=== PATIENT | male | born 1960 | race Caucasian/White ===

== ENCOUNTER 2018-12-11 09:09 | Emergency (ER) | payer OTHER ==
[~2018-12-11] VITALS: Ht 185.4 cm; Wt 120.7 kg
--- NOTE | 2018-12-11 09:25 | NUR ---
PATIENT CAME TO ER, WITH UNCONTROLLABLE SHAKINESS STARTED 45 MINS AGO, FSBS TAKEN 174. PATIENT A&O X 3, NO ACUTE DISTRESS. AWAITING
[2018-12-11] MEDS ORDERED: LORAZEPAM INJ 2 MG/ML VIAL IVP ONE (09:30)
[2018-12-11] MEDS ORDERED: IV NS 0.9% 1,000 ML BAG IV ONE (09:30)
[2018-12-11 09:41] LABS: BASOPHILS # (AUTO) 0.1 /CMM (0.0-0.2); BASOPHILS % (AUTO) 0.7 % (0.0-2.0); EOSINOPHILS % (AUTO) 1.4 % (0.0-6.0); HEMATOCRIT 44 % (39-51); HEMOGLOBIN 14.9 g/dL (13.5-17.5); LYMPHOCYTES # (AUTO) 2.1 /CMM (0.8-4.8); LYMPHOCYTES % (AUTO) 20.8 % (20.0-44.0); MEAN CORPUSCULAR HGB CONC 34 g/dl (31.0-36.0); MEAN CORPUSCULAR VOLUME 91 fL (80-96); MONOCYTES # (AUTO) 0.7 /CMM (0.1-1.30); MONOCYTES % (AUTO) 7.2 % (2.0-12.0); NEUTROPHILS % (AUTO) 69.9 % (43.0-81.0); PLATELET COUNT (AUTO) 254 /CMM (150-450); RED BLOOD CELL COUNT(AUTO) 4.86 MIL/uL (4.5-6.0); WHITE BLOOD COUNT (AUTO) 10.1 K/uL (4.3-11.0)
--- NOTE | 2018-12-11 09:44 | NUR ---
IV LINE ESTABLISHED ON RIGHT AC g18
--- NOTE | 2018-12-11 09:45 | NUR ---
URINE COLLECTED AND SENT TO LAB
[2018-12-11] MEDS ORDERED: LORAZEPAM INJ 2 MG/ML VIAL ONE (09:47)
[2018-12-11 10:02] LABS: ALANINE AMINOTRANSFERASE 36 U/L (12-78); ALBUMIN 3.6 g/dL (3.4-5.0); ALCOHOL, BLOOD < 3 mg/dL (0-0); ALKALINE PHOSPHATASE 100 U/L (46-116); ASPARTATE AMINOTRANSFERASE 21 U/L (15-37); BILIRUBIN,DIRECT 0.1 mg/dL (0.0-0.2); BILIRUBIN,TOTAL 0.5 mg/dL (0.2-1.0); CALCIUM, SERUM 8.8 mg/dL (8.5-10.1); CARBON DIOXIDE 26 mmol/L (21-32); CHLORIDE 104 mmol/L (98-107); CREATININE 0.9 mg/dL (0.6-1.3); GLUCOSE 183 mg/dL (74-106); SODIUM SERUM 140 mmol/L (136-145); TOTAL PROTEIN, SERUM 6.9 g/dL (6.4-8.2); UREA NITROGEN, BLOOD 12 mg/dL (7-18)
[2018-12-11 10:05] LABS: APPEARANCE,URINE Clear (CLEAR); BILIRUBIN,URINE Negative (NEGATIVE); BLOOD, URINE Negative Ery/uL (NEGATIVE); COLOR,URINE Yellow (YELLOW); KETONES,URINE Negative (NEGATIVE); LEUKOCYTE ESTERASE ,URINE Negative (NEGATIVE); NITRITE, URINE Negative (NEGATIVE); PROTEIN,URINE Negative (NEGATIVE); UGLUCOSE >=1000 mg/dL (NEGATIVE); UROBILINOGEN,URINE 0.2 EU/dL (0.2)
[2018-12-11 10:05] LABS: ACETAMINOPHEN < 2 ug/ml (10-30); SALICYLATE < 2.8 mg/dL (2.8-20.0)
[2018-12-11 10:08] LABS: BAND % (MANUAL) 2 % (0.0-5.0); LYMPHOCYTES % (MANUAL) 24 % (16-48); MONOCYTES % (MANUAL) 7 % (0-11.0); NEUTROPHILS % (MANUAL) 67 (42-76)
[2018-12-11 10:31] LABS: RBC,URINE 0-2 /HPF (0-2); WBC,URINE 0-2 /HPF (0-3)
[2018-12-11 10:32] LABS: BACTERIA,URINE None seen /HPF (None Seen); SQUAMOUS EPITHELIAL CELL,UR Few /HPF (None Seen)
[2018-12-11] MEDS ORDERED: MORPHINE SULFATE INJ 4 MG/ML DISP.SYRIN ONE ×2 (11:56→13:56)
[2018-12-11] MEDS ORDERED: MORPHINE SULFATE INJ 4 MG/ML DISP.SYRIN IV ONE ×2 (12:00→14:00)
--- NOTE | 2018-12-11 12:07 | NUR ---
CALLED [facility] TO START TRANSFER. AWAITING ANTONINA VÁZQUEZ TO CALL BACK
[2018-12-11] MEDS ORDERED: ASPI-605 PO (12:09)
[2018-12-11] MEDS ORDERED: ATOR20TA PO (12:09)
[2018-12-11] MEDS ORDERED: FLEC50TA2 PO (12:09)
[2018-12-11] MEDS ORDERED: EMPA25TA PO (12:09)
[2018-12-11] MEDS ORDERED: METO25TA6 PO (12:09)
[2018-12-11] MEDS ORDERED: METF-442 PO (12:09)
--- NOTE | 2018-12-11 13:36 | NUR ---
SPOKE TO ANA FROM [facility] AND GAVE HER LAB VALUES. AWAITING BED
[2018-12-11 15:00] VITALS: BP 113/65
--- NOTE | 2018-12-11 15:02 | NUR ---
ANA FROM [facility] CALLED TO INFORM US TO CALL [phone] VELAZQUEZ IS ADMITTING. [facility] ETA [id number]
[2018-12-11] MEDS ORDERED: ACETAMINOPHEN 325 MG TABLET ONE (15:28)
[2018-12-11] MEDS ORDERED: ACETAMINOPHEN 325 MG TABLET PO ONE (15:30)
--- NOTE | 2018-12-11 15:40 | NUR ---
PLACED CALL TO ANTONINA ([phone]) AND GAVE REPORT TO KALLI FOR [facility]
--- NOTE | 2018-12-11 15:45 | NUR ---
PATIENT TRANSFERRED TO [facility] IN STABLE CONDITION. NO ACUTE DISTRESS. NO CHANGES IN LOC NOTED. ALL BELONGINGS WITH PATIENT. IV INTACT AND PATENT. TRANSFER INFORMATION, CD IMAGES WITH PATIENT
== END 2018-12-11 16:12 | disposition short-term general hospital (02) ==
LOC: ER 09:11
DX: G45.9 Transient cerebral ischemic attack, unspecified (principal); R41.82 Altered mental status, unspecified; I48.91 Unspecified atrial fibrillation; I10 Essential (primary) hypertension; E11.9 Type 2 diabetes mellitus without complications; Z98.890 Other specified postprocedural states; Z79.82 Long term (current) use of aspirin
CPT/HCPCS: 36415; 70450; 71045; 80048; 80076; 80305; 80307; 80329; 81001; 82962; 85025; 85730; 87081; 93005; 96361; 96374; 96375; 96376; 99285; G0480; J2060; J2270 ×2; J7030; 81000-TC